=== PATIENT | male | born 1960 | race Caucasian/White ===

== ENCOUNTER → 2017-12-18 | Outpatient (CLI) | payer OTHER ==
[~2017-12-18] MED LIST: FENO145T20 PO; FISH400C4 PO; LOVA10TA PO; MULT-963 PO; OXYC-197 PO; PANT40TA2 PO; SUCR1ORA5 PO
--- NOTE | 2017-12-18 12:57 | Diagnostic Imaging Report ---
INDICATION: COUGH. COMPARISON: 06/30/2016. FINDINGS: Frontal and lateral views of the chest demonstrate normal heart size and pulmonary vascularity. The lungs are clear. There are no signs of infiltrate, pleural effusions or pneumothoraces. The visualized osseous structures show no acute abnormalities. IMPRESSION: 1. No acute process. No signs of infiltrates, effusions or pneumothoraces. Dictated by: Dictated on workstation # [id number]
== END ==
LOC: RAD 11:39
PROVIDERS: ATTEND Family Medicine
DX: R05 Cough (principal)
CPT/HCPCS: 71046

== ENCOUNTER → 2019-01-29 | Outpatient (CLI) | payer OTHER ==
[~2019-01-29] MED LIST changes: -FENO145T20 PO; +FENO145T37 PO; -OXYC-197 PO; +OXYC1TAB87 PO
--- NOTE | 2019-01-29 16:31 | Diagnostic Imaging Report ---
INDICATION: Lower respiratory infection. EXAMINATION: PA and lateral chest. FINDINGS: The heart size and pulmonary vascularity are normal. The lungs are clear. There are no effusions or pneumothoraces. IMPRESSION: Negative chest. Dictated by: Dictated on workstation # [id number]
== END ==
LOC: RAD 14:25
PROVIDERS: ATTEND Family Medicine
DX: J22 Unspecified acute lower respiratory infection (principal)
CPT/HCPCS: 71046